=== PATIENT | male | born 1935 | race Asian ===

== ENCOUNTER 2021-04-22 05:46 | Inpatient (IN) | payer MEDICARE, OTHER ==
[~2021-04-22] VITALS: Ht 175.3 cm; Wt 77.5 kg
[~2021-04-22 05:46] MED LIST: AMLO5TAB66 PO; DOCU250C28 PO
[2021-04-22] MEDS ORDERED: ASPIRIN 81 MG CHEWABLE TABLET PO ONE (06:15)
[2021-04-22] MEDS ORDERED: NITROGLYCERIN 2% (1 GM=INCH) PACKET TP ONE (06:15)
[2021-04-22 06:22] LABS: COVID AG,FIA SOURCE NASOPHARYNGEAL
[2021-04-22 06:24] LABS: BASOPHILS % (AUTO) 0.8 % (0.0-2.0); EOSINOPHILS % (AUTO) 10.3 % (1.0-6.0); HEMATOCRIT 33.9 % (41-53); HEMOGLOBIN 10.8 g/dL (13.5-17.5); LYMPHOCYTES # (AUTO) 2.3 K/uL (1.0-4.8); LYMPHOCYTES % (AUTO) 20.1 % (22.0-44.0); MEAN CORPUSCULAR HGB CONC 31.8 G/dL (31.0-37.0); MEAN CORPUSCULAR VOLUME 91 fL (80-100); MONOCYTES # (AUTO) 0.7 K/uL (0.1-1.0); MONOCYTES % (AUTO) 6.4 % (2.0-9.0); NEUTROPHILS # (AUTO) 7.2 K/uL (1.8-7.7); NEUTROPHILS % (AUTO) 62.4 % (40.0-70.0); PLATELET COUNT (AUTO) 359 K/uL (150-450); RED BLOOD CELL COUNT(AUTO) 3.73 MIL/uL (4.50-5.90); RED CELL DISTRIBUTION WIDTH 17.1 % (11.5-14.5)
[2021-04-22 06:35] LABS: CALCIUM, TOTAL 8.5 mg/dL (8.8-10.5); CREATININE 1.56 mg/dL (0.60-1.30); POTASSIUM 3.7 mmol/L (3.5-5.1)
[2021-04-22] MEDS ORDERED: SODIUM CHLORIDE 0.9% 100 ML ONE (07:11)
[2021-04-22] MEDS ORDERED: IOHEXOL 350 MG/ML 75 ML VIAL ONE (07:11)
[2021-04-22] MEDS ORDERED: MORPHINE SULFATE 2 MG/ML SYRINGE IVP ONE ×2 (08:00→09:00)
[2021-04-22] MEDS ORDERED: LORazepam 2 MG/ML VIAL IVP ONE ×2 (08:00→09:00)
[2021-04-22] MEDS ORDERED: SODIUM CHLORIDE 0.9% 1,000 ML IV ONE (08:15)
[2021-04-22] MEDS ORDERED: KETAMINE HCL 50 MG/ML 10 ML VIAL ONE (09:02)
[2021-04-22] MEDS ORDERED: KETAMINE HCL 50 MG/ML 10 ML VIAL IVP ONE (09:30)
[2021-04-22] MEDS ORDERED: ACETAMINOPHEN 325 MG TABLET PO PRN ×2 (13:00→15:15)
[2021-04-22] MEDS ORDERED: ONDANSETRON HCL 4 MG/2 ML VIAL IVP PRN ×2 (13:00→15:15)
[2021-04-22] MEDS ORDERED: BISACODYL 10 MG RECTAL RECTAL SUPPOSITORY PR PRN (15:15)
[2021-04-22] MEDS ORDERED: MORPHINE SULFATE 2 MG/ML SYRINGE IVP PRN (15:15)
[2021-04-22] MEDS ORDERED: ZOLPIDEM TARTRATE 5 MG TABLET PO PRN (15:15)
[2021-04-22] MEDS ORDERED: MAGNESIUM HYDROXIDE SUSPENSION 30 ML UDCUP PO PRN (15:15)
[2021-04-22] MEDS: NITROGLYCERIN 2% (1 GM=INCH) PACKET TP SCH (16:37)
[2021-04-22] MEDS: HEPARIN SODIUM,PORCINE 5,000 UNITS/ML VIAL SQ SCH (16:37)
[2021-04-22 17:36] VITALS: BP 105/55
[2021-04-22 19:54] VITALS: BP 145/75
[2021-04-22] MEDS: HYDROCODONE/ACETAMINOPHEN 5-325 MG TABLET PO PRN (20:28)
[2021-04-22] MEDS: DOCUSATE SODIUM 100 MG CAPSULE PO SCH (20:29)
[2021-04-22 22:03] VITALS: BP 131/82
[2021-04-22 23:38] VITALS: BP 103/52
[2021-04-23] VITALS (7 sets, daily range): BP systolic 104–125; BP diastolic 57–85
[2021-04-23] MEDS: HEPARIN SODIUM,PORCINE 5,000 UNITS/ML VIAL SQ SCH ×3 (00:19→15:34)
[2021-04-23] MEDS: NITROGLYCERIN 2% (1 GM=INCH) PACKET TP SCH ×3 (00:20→15:34)
[2021-04-23 07:40] LABS: BASOPHILS % (AUTO) 1.6 % (0.0-2.0); EOSINOPHILS % (AUTO) 13.7 % (1.0-6.0); HEMATOCRIT 30.2 % (41-53); HEMOGLOBIN 9.9 g/dL (13.5-17.5); LYMPHOCYTES # (AUTO) 1.2 K/uL (1.0-4.8); LYMPHOCYTES % (AUTO) 15.7 % (22.0-44.0); MEAN CORPUSCULAR HEMOGLOBIN 29.3 pg (26.0-34.0); MEAN CORPUSCULAR HGB CONC 32.7 G/dL (31.0-37.0); MEAN CORPUSCULAR VOLUME 90 fL (80-100); MONOCYTES # (AUTO) 0.8 K/uL (0.1-1.0); MONOCYTES % (AUTO) 10.1 % (2.0-9.0); NEUTROPHILS # (AUTO) 4.5 K/uL (1.8-7.7); NEUTROPHILS % (AUTO) 58.9 % (40.0-70.0); PLATELET COUNT (AUTO) 309 K/uL (150-450); RED BLOOD CELL COUNT(AUTO) 3.37 MIL/uL (4.50-5.90); RED CELL DISTRIBUTION WIDTH 16.9 % (11.5-14.5)
[2021-04-23 07:59] LABS: CALCIUM, TOTAL 8.6 mg/dL (8.8-10.5); CHOL/HDL RATIO 2.9 (4.2-7.3); CREATININE 1.25 mg/dL (0.60-1.30); POTASSIUM 3.9 mmol/L (3.5-5.1)
[2021-04-23] MEDS: PANTOPRAZOLE SODIUM 40 MG DR TABLET PO SCH (08:09)
[2021-04-23] MEDS: AmLODIPine BESYLATE 5 MG TABLET PO SCH (08:09)
[2021-04-23] MEDS: DOCUSATE SODIUM 100 MG CAPSULE PO SCH ×2 (08:10→20:45)
[2021-04-23] MEDS ORDERED: ASPIRIN 81 MG CHEWABLE TABLET PO SCH (09:00)
[2021-04-23] MEDS: ATORVASTATIN CALCIUM 40 MG TABLET PO SCH (13:12)
[2021-04-23] MEDS: METOPROLOL TARTRATE 25 MG TABLET PO SCH ×2 (13:12→20:45)
[2021-04-24] MEDS: HEPARIN SODIUM,PORCINE 5,000 UNITS/ML VIAL SQ SCH ×4 (00:08→23:55)
[2021-04-24] MEDS: NITROGLYCERIN 2% (1 GM=INCH) PACKET TP SCH ×4 (00:08→23:57)
[2021-04-24 04:18] VITALS: BP 114/52
[2021-04-24 06:19] LABS: BASOPHILS % (AUTO) 2.2 % (0.0-2.0); EOSINOPHILS % (AUTO) 12.3 % (1.0-6.0); HEMATOCRIT 30.8 % (41-53); HEMOGLOBIN 10.1 g/dL (13.5-17.5); LYMPHOCYTES # (AUTO) 1.6 K/uL (1.0-4.8); LYMPHOCYTES % (AUTO) 17.7 % (22.0-44.0); MEAN CORPUSCULAR HEMOGLOBIN 29.4 pg (26.0-34.0); MEAN CORPUSCULAR HGB CONC 32.7 G/dL (31.0-37.0); MEAN CORPUSCULAR VOLUME 90 fL (80-100); MONOCYTES # (AUTO) 0.8 K/uL (0.1-1.0); MONOCYTES % (AUTO) 8.7 % (2.0-9.0); NEUTROPHILS # (AUTO) 5.4 K/uL (1.8-7.7); NEUTROPHILS % (AUTO) 59.1 % (40.0-70.0); PLATELET COUNT (AUTO) 328 K/uL (150-450); RED BLOOD CELL COUNT(AUTO) 3.42 MIL/uL (4.50-5.90); RED CELL DISTRIBUTION WIDTH 16.7 % (11.5-14.5)
[2021-04-24 06:57] LABS: ALBUMIN 3.1 g/dL (3.4-5.0); BILIRUBIN,TOTAL 0.4 mg/dL (0.1-1.0); CALCIUM, TOTAL 8.8 mg/dL (8.8-10.5); CREATININE 1.27 mg/dL (0.60-1.30); MAGNESIUM 1.9 mg/dL (1.80-2.40); POTASSIUM 4.6 mmol/L (3.5-5.1); TOTAL PROTEIN, SERUM 6.8 g/dL (6.4-8.2)
[2021-04-24 07:50] VITALS: BP 147/64
[2021-04-24] MEDS: METOPROLOL TARTRATE 25 MG TABLET PO SCH ×2 (09:00→21:20)
[2021-04-24 10:06] LABS: PROTHROMBIN TIME 10.3 SEC (9.4-11.6)
[2021-04-24] MEDS ORDERED: FentaNYL CITRATE PF 100 MCG/2 ML VIAL IVP ONE (11:00)
[2021-04-24] MEDS ORDERED: MIDAZOLAM HCL 2 MG/2 ML VIAL IVP ONE (11:00)
[2021-04-24 11:40] VITALS: BP 139/62
[2021-04-24] MEDS: PANTOPRAZOLE SODIUM 40 MG DR TABLET PO SCH (11:56)
[2021-04-24] MEDS: DOCUSATE SODIUM 100 MG CAPSULE PO SCH ×2 (11:56→21:20)
[2021-04-24] MEDS: ASPIRIN 81 MG CHEWABLE TABLET PO SCH (11:56)
[2021-04-24] MEDS: AmLODIPine BESYLATE 5 MG TABLET PO SCH (11:56)
[2021-04-24] MEDS: ATORVASTATIN CALCIUM 40 MG TABLET PO SCH (11:56)
[2021-04-24 16:18] VITALS: BP 115/57
[2021-04-24 16:42] LABS: BASOPHILS % (AUTO) 1.4 % (0.0-2.0); HEMOGLOBIN 10.6 g/dL (13.5-17.5); LYMPHOCYTES # (AUTO) 1.1 K/uL (1.0-4.8); LYMPHOCYTES % (AUTO) 11.3 % (22.0-44.0); MEAN CORPUSCULAR HEMOGLOBIN 29.6 pg (26.0-34.0); MEAN CORPUSCULAR VOLUME 90 fL (80-100); MONOCYTES # (AUTO) 0.8 K/uL (0.1-1.0); MONOCYTES % (AUTO) 8.3 % (2.0-9.0); NEUTROPHILS # (AUTO) 7.1 K/uL (1.8-7.7); PLATELET COUNT (AUTO) 335 K/uL (150-450); RED BLOOD CELL COUNT(AUTO) 3.58 MIL/uL (4.50-5.90); RED CELL DISTRIBUTION WIDTH 16.9 % (11.5-14.5)
[2021-04-24 16:56] LABS: CALCIUM, TOTAL 9.2 mg/dL (8.8-10.5); CREATININE 1.37 mg/dL (0.60-1.30); POTASSIUM 4.2 mmol/L (3.5-5.1)
[2021-04-24 19:41] VITALS: BP 141/88
[2021-04-25] VITALS: BP 109/60
[2021-04-25 04:22] VITALS: BP 110/56
[2021-04-25 07:12] VITALS: BP 114/57
[2021-04-25] MEDS: AmLODIPine BESYLATE 5 MG TABLET PO SCH (09:23)
[2021-04-25] MEDS: HEPARIN SODIUM,PORCINE 5,000 UNITS/ML VIAL SQ SCH ×3 (09:23→23:12)
[2021-04-25] MEDS: METOPROLOL TARTRATE 25 MG TABLET PO SCH ×2 (09:23→20:21)
[2021-04-25] MEDS: NITROGLYCERIN 2% (1 GM=INCH) PACKET TP SCH ×3 (09:23→23:12)
[2021-04-25] MEDS: DOCUSATE SODIUM 100 MG CAPSULE PO SCH ×2 (09:23→20:21)
[2021-04-25] MEDS: PANTOPRAZOLE SODIUM 40 MG DR TABLET PO SCH (09:23)
[2021-04-25] MEDS: ASPIRIN 81 MG CHEWABLE TABLET PO SCH (09:23)
[2021-04-25] MEDS: ATORVASTATIN CALCIUM 40 MG TABLET PO SCH (09:23)
[2021-04-25 10:51] VITALS: BP 122/58
[2021-04-25 12:11] LABS: BASOPHILS % (AUTO) 2.3 % (0.0-2.0); EOSINOPHILS % (AUTO) 7.8 % (1.0-6.0); HEMATOCRIT 33.3 % (41-53); LYMPHOCYTES # (AUTO) 1.5 K/uL (1.0-4.8); LYMPHOCYTES % (AUTO) 14.7 % (22.0-44.0); MEAN CORPUSCULAR HEMOGLOBIN 29.6 pg (26.0-34.0); MEAN CORPUSCULAR VOLUME 90 fL (80-100); MONOCYTES % (AUTO) 9.5 % (2.0-9.0); NEUTROPHILS # (AUTO) 6.7 K/uL (1.8-7.7); NEUTROPHILS % (AUTO) 65.7 % (40.0-70.0); PLATELET COUNT (AUTO) 348 K/uL (150-450); RED BLOOD CELL COUNT(AUTO) 3.72 MIL/uL (4.50-5.90)
[2021-04-25 12:19] LABS: CALCIUM, TOTAL 9.5 mg/dL (8.8-10.5); CREATININE 1.33 mg/dL (0.60-1.30); POTASSIUM 5.2 mmol/L (3.5-5.1)
[2021-04-25] MEDS ORDERED: SODIUM POLYSTYRENE SULFONATE 15 GM/60 ML SUSPENSION BOTTLE PO ONE (14:00)
[2021-04-25 15:16] VITALS: BP 129/73
[2021-04-25 19:10] VITALS: BP 108/52
[2021-04-26] VITALS (19 sets, daily range): BP systolic 99–167; BP diastolic 53–70
[2021-04-26] MEDS ORDERED: IOHEXOL 300 MG/ML 50 ML VIAL ONE (07:05)
[2021-04-26] MEDS ORDERED: LIDOCAINE/PF 1% 30 ML VIAL ONE (07:05)
[2021-04-26] MEDS ORDERED: SODIUM BICARBONATE 50 MEQ/50 ML VIAL ONE (07:05)
[2021-04-26] MEDS ORDERED: IOHEXOL 300 MG/ML 150 ML VIAL ONE (07:05)
[2021-04-26] MEDS ORDERED: IOHEXOL 300 MG/ML 100 ML VIAL ONE (07:05)
[2021-04-26] MEDS ORDERED: HEPARIN SODIUM 1000 UNITS/NS 1,000 ML ONE (07:06)
[2021-04-26] MEDS: NITROGLYCERIN 2% (1 GM=INCH) PACKET TP SCH ×3 (08:00→23:46)
[2021-04-26] MEDS: HEPARIN SODIUM,PORCINE 5,000 UNITS/ML VIAL SQ SCH ×3 (08:00→23:46)
[2021-04-26 08:04] LABS: BASOPHILS % (AUTO) 1.8 % (0.0-2.0); EOSINOPHILS % (AUTO) 10.9 % (1.0-6.0); HEMATOCRIT 31.3 % (41-53); HEMOGLOBIN 10.2 g/dL (13.5-17.5); LYMPHOCYTES # (AUTO) 1.7 K/uL (1.0-4.8); LYMPHOCYTES % (AUTO) 19.6 % (22.0-44.0); MEAN CORPUSCULAR HEMOGLOBIN 29.2 pg (26.0-34.0); MEAN CORPUSCULAR HGB CONC 32.6 G/dL (31.0-37.0); MEAN CORPUSCULAR VOLUME 90 fL (80-100); MONOCYTES # (AUTO) 0.9 K/uL (0.1-1.0); MONOCYTES % (AUTO) 9.7 % (2.0-9.0); NEUTROPHILS # (AUTO) 5.1 K/uL (1.8-7.7); PLATELET COUNT (AUTO) 308 K/uL (150-450); RED BLOOD CELL COUNT(AUTO) 3.49 MIL/uL (4.50-5.90); RED CELL DISTRIBUTION WIDTH 16.8 % (11.5-14.5)
[2021-04-26 08:08] LABS: PROTHROMBIN TIME 10.5 SEC (9.4-11.6)
[2021-04-26] MEDS ORDERED: FentaNYL CITRATE PF 100 MCG/2 ML VIAL ONE (08:10)
[2021-04-26] MEDS ORDERED: MIDAZOLAM HCL 2 MG/2 ML VIAL ONE (08:11)
[2021-04-26] MEDS ORDERED: SODIUM CHLORIDE 0.9% 500 ML IV ONE (08:15)
[2021-04-26] MEDS ORDERED: FentaNYL CITRATE PF 100 MCG/2 ML VIAL IVP ONE (08:15)
[2021-04-26] MEDS ORDERED: IOHEXOL 300 MG/ML 150 ML VIAL IARTER ONE (08:15)
[2021-04-26] MEDS ORDERED: LIDOCAINE 1% 30 ML/SOD BICARB 8.4% 4 ML SQ ONE (08:15)
[2021-04-26] MEDS ORDERED: HEPARIN SODIUM 1000 UNITS/NS 1,000 ML IARTER ONE (08:15)
[2021-04-26 08:24] LABS: ALBUMIN 3.1 g/dL (3.4-5.0); BILIRUBIN,TOTAL 0.4 mg/dL (0.1-1.0); CREATININE 1.4 mg/dL (0.60-1.30); POTASSIUM 4.5 mmol/L (3.5-5.1); TOTAL PROTEIN, SERUM 7.1 g/dL (6.4-8.2)
[2021-04-26] MEDS: METOPROLOL TARTRATE 25 MG TABLET PO SCH ×3 (09:00→21:00)
[2021-04-26] MEDS: PANTOPRAZOLE SODIUM 40 MG DR TABLET PO SCH (09:24)
[2021-04-26] MEDS: DOCUSATE SODIUM 100 MG CAPSULE PO SCH ×2 (09:24→21:01)
[2021-04-26] MEDS: ATORVASTATIN CALCIUM 40 MG TABLET PO SCH (09:24)
[2021-04-26] MEDS: ASPIRIN 81 MG CHEWABLE TABLET PO SCH (09:24)
[2021-04-26] MEDS: AmLODIPine BESYLATE 5 MG TABLET PO SCH (09:25)
[2021-04-26] MEDS: HYDROCODONE/ACETAMINOPHEN 5-325 MG TABLET PO PRN (10:51)
[2021-04-26 14:06] LABS: QUANTIFERON, TB GOLD PLUS Negative (Negative)
[2021-04-26] MEDS: PYRIDOXINE HCL 50 MG TABLET PO SCH (18:20)
[2021-04-26] MEDS: RIFAMPIN 300 MG CAPSULE PO SCH (18:20)
[2021-04-26] MEDS: ISONIAZID 300 MG TABLET PO SCH (18:20)
[2021-04-26] MEDS: PYRAZINAMIDE 500 MG TABLET PO SCH (18:20)
[2021-04-26] MEDS: ETHAMBUTOL HCL 400 MG TABLET PO SCH (18:20)
[2021-04-27 04:09] VITALS: BP 118/81
[2021-04-27 07:16] LABS: BASOPHILS % (AUTO) 1.1 % (0.0-2.0); HEMATOCRIT 33.1 % (41-53); HEMOGLOBIN 10.8 g/dL (13.5-17.5); LYMPHOCYTES % (AUTO) 8.8 % (22.0-44.0); MEAN CORPUSCULAR HEMOGLOBIN 29.3 pg (26.0-34.0); MEAN CORPUSCULAR HGB CONC 32.6 G/dL (31.0-37.0); MEAN CORPUSCULAR VOLUME 90 fL (80-100); MONOCYTES # (AUTO) 0.7 K/uL (0.1-1.0); MONOCYTES % (AUTO) 6.8 % (2.0-9.0); NEUTROPHILS # (AUTO) 8.6 K/uL (1.8-7.7); NEUTROPHILS % (AUTO) 78.3 % (40.0-70.0); PLATELET COUNT (AUTO) 321 K/uL (150-450); RED BLOOD CELL COUNT(AUTO) 3.68 MIL/uL (4.50-5.90); RED CELL DISTRIBUTION WIDTH 16.7 % (11.5-14.5)
[2021-04-27 07:39] LABS: ALBUMIN 3.3 g/dL (3.4-5.0); BILIRUBIN,TOTAL 1.2 mg/dL (0.1-1.0); CREATININE 1.66 mg/dL (0.60-1.30); POTASSIUM 4.7 mmol/L (3.5-5.1); TOTAL PROTEIN, SERUM 7.5 g/dL (6.4-8.2)
[2021-04-27 08:00] VITALS: BP 140/66
[2021-04-27] MEDS: NITROGLYCERIN 2% (1 GM=INCH) PACKET TP SCH ×2 (08:00→16:00)
[2021-04-27] MEDS: AmLODIPine BESYLATE 5 MG TABLET PO SCH (08:37)
[2021-04-27] MEDS: ATORVASTATIN CALCIUM 40 MG TABLET PO SCH (08:37)
[2021-04-27] MEDS: PYRAZINAMIDE 500 MG TABLET PO SCH (08:37)
[2021-04-27] MEDS: ISONIAZID 300 MG TABLET PO SCH (08:37)
[2021-04-27] MEDS: PANTOPRAZOLE SODIUM 40 MG DR TABLET PO SCH (08:37)
[2021-04-27] MEDS: RIFAMPIN 300 MG CAPSULE PO SCH (08:37)
[2021-04-27] MEDS: ASPIRIN 81 MG CHEWABLE TABLET PO SCH (08:37)
[2021-04-27] MEDS: DOCUSATE SODIUM 100 MG CAPSULE PO SCH ×2 (08:37→20:53)
[2021-04-27] MEDS: PYRIDOXINE HCL 50 MG TABLET PO SCH (08:38)
[2021-04-27] MEDS: ETHAMBUTOL HCL 400 MG TABLET PO SCH (08:38)
[2021-04-27] MEDS: HEPARIN SODIUM,PORCINE 5,000 UNITS/ML VIAL SQ SCH ×2 (08:38→16:22)
[2021-04-27] MEDS: METOPROLOL TARTRATE 25 MG TABLET PO SCH ×2 (09:58→20:53)
[2021-04-27 12:00] VITALS: BP 150/67
[2021-04-27 16:08] VITALS: BP 139/66
[2021-04-27 19:23] VITALS: BP 103/59
[2021-04-27] MEDS: HYDROCODONE/ACETAMINOPHEN 5-325 MG TABLET PO PRN (20:54)
[2021-04-27 23:46] VITALS: BP 108/60
[2021-04-28] MEDS: NITROGLYCERIN 2% (1 GM=INCH) PACKET TP SCH ×3 (00:32→15:11)
[2021-04-28] MEDS: HEPARIN SODIUM,PORCINE 5,000 UNITS/ML VIAL SQ SCH ×3 (00:32→15:47)
[2021-04-28 04:26] VITALS: BP 113/59
[2021-04-28 07:06] LABS: HIV 1-2 SCREEN 4TH GEN W/RFLX Non Reactive (Non Reactive)
[2021-04-28] MEDS: ASPIRIN 81 MG CHEWABLE TABLET PO SCH (08:17)
[2021-04-28] MEDS: AmLODIPine BESYLATE 5 MG TABLET PO SCH ×2 (08:17→08:26)
[2021-04-28] MEDS: PANTOPRAZOLE SODIUM 40 MG DR TABLET PO SCH (08:17)
[2021-04-28] MEDS: DOCUSATE SODIUM 100 MG CAPSULE PO SCH ×2 (08:17→20:56)
[2021-04-28] MEDS: ISONIAZID 300 MG TABLET PO SCH (08:18)
[2021-04-28] MEDS: ETHAMBUTOL HCL 400 MG TABLET PO SCH (08:18)
[2021-04-28] MEDS: ATORVASTATIN CALCIUM 40 MG TABLET PO SCH (08:18)
[2021-04-28] MEDS: METOPROLOL TARTRATE 25 MG TABLET PO SCH ×2 (08:18→21:00)
[2021-04-28] MEDS: RIFAMPIN 300 MG CAPSULE PO SCH (08:18)
[2021-04-28] MEDS: PYRIDOXINE HCL 50 MG TABLET PO SCH (08:18)
[2021-04-28] MEDS: PYRAZINAMIDE 500 MG TABLET PO SCH (08:19)
[2021-04-28 08:20] VITALS: BP 118/61
[2021-04-28 12:21] VITALS: BP 115/63
[2021-04-28 15:53] VITALS: BP 105/51
[2021-04-28 20:00] VITALS: BP 110/60
[2021-04-29] MEDS: HEPARIN SODIUM,PORCINE 5,000 UNITS/ML VIAL SQ SCH ×3 (00:29→15:52)
[2021-04-29 00:47] VITALS: BP 127/58
[2021-04-29 05:12] VITALS: BP 118/65
[2021-04-29] MEDS: METOPROLOL TARTRATE 25 MG TABLET PO SCH ×2 (08:32→20:41)
[2021-04-29] MEDS: NITROGLYCERIN 2% (1 GM=INCH) PACKET TP SCH ×3 (08:32→15:52)
[2021-04-29] MEDS: DOCUSATE SODIUM 100 MG CAPSULE PO SCH ×2 (08:32→20:41)
[2021-04-29] MEDS: PANTOPRAZOLE SODIUM 40 MG DR TABLET PO SCH (08:33)
[2021-04-29] MEDS: PYRIDOXINE HCL 50 MG TABLET PO SCH (08:33)
[2021-04-29] MEDS: AmLODIPine BESYLATE 5 MG TABLET PO SCH (08:33)
[2021-04-29] MEDS: ASPIRIN 81 MG CHEWABLE TABLET PO SCH (08:33)
[2021-04-29] MEDS: ETHAMBUTOL HCL 400 MG TABLET PO SCH (08:34)
[2021-04-29] MEDS: RIFAMPIN 300 MG CAPSULE PO SCH (08:34)
[2021-04-29] MEDS: ATORVASTATIN CALCIUM 40 MG TABLET PO SCH (08:34)
[2021-04-29] MEDS: PYRAZINAMIDE 500 MG TABLET PO SCH (08:34)
[2021-04-29 08:35] VITALS: BP 134/57
[2021-04-29] MEDS: ISONIAZID 300 MG TABLET PO SCH (08:35)
[2021-04-29 11:20] LABS: CREATININE 2.09 mg/dL (0.60-1.30); POTASSIUM 4.5 mmol/L (3.5-5.1)
[2021-04-29 11:59] VITALS: BP_SYST 128; BP_SYST 18; BP_DIAS 96
[2021-04-29 16:33] VITALS: BP 146/69
[2021-04-29 20:44] VITALS: BP 141/71
[2021-04-29] MEDS: HYDROCODONE/ACETAMINOPHEN 5-325 MG TABLET PO PRN (20:45)
[2021-04-30] VITALS (7 sets, daily range): BP systolic 109–132; BP diastolic 50–65
[2021-04-30] MEDS: HEPARIN SODIUM,PORCINE 5,000 UNITS/ML VIAL SQ SCH ×3 (01:41→16:04)
[2021-04-30 07:01] LABS: BASOPHILS % (AUTO) 1.7 % (0.0-2.0); EOSINOPHILS % (AUTO) 11.8 % (1.0-6.0); HEMATOCRIT 31.1 % (41-53); HEMOGLOBIN 10.2 g/dL (13.5-17.5); LYMPHOCYTES # (AUTO) 1.3 K/uL (1.0-4.8); LYMPHOCYTES % (AUTO) 12.5 % (22.0-44.0); MEAN CORPUSCULAR HEMOGLOBIN 29.5 pg (26.0-34.0); MEAN CORPUSCULAR HGB CONC 32.7 G/dL (31.0-37.0); MEAN CORPUSCULAR VOLUME 90 fL (80-100); MONOCYTES # (AUTO) 1.1 K/uL (0.1-1.0); MONOCYTES % (AUTO) 10.7 % (2.0-9.0); NEUTROPHILS # (AUTO) 6.4 K/uL (1.8-7.7); NEUTROPHILS % (AUTO) 63.3 % (40.0-70.0); PLATELET COUNT (AUTO) 311 K/uL (150-450); RED BLOOD CELL COUNT(AUTO) 3.45 MIL/uL (4.50-5.90); RED CELL DISTRIBUTION WIDTH 16.4 % (11.5-14.5)
[2021-04-30 07:21] LABS: ALBUMIN 3.2 g/dL (3.4-5.0); BILIRUBIN,TOTAL 0.7 mg/dL (0.1-1.0); CALCIUM, TOTAL 9.4 mg/dL (8.8-10.5); CREATININE 1.92 mg/dL (0.60-1.30); POTASSIUM 4.8 mmol/L (3.5-5.1); TOTAL PROTEIN, SERUM 7.6 g/dL (6.4-8.2)
[2021-04-30] MEDS: PANTOPRAZOLE SODIUM 40 MG DR TABLET PO SCH (08:18)
[2021-04-30] MEDS: AmLODIPine BESYLATE 5 MG TABLET PO SCH (08:18)
[2021-04-30] MEDS: DOCUSATE SODIUM 100 MG CAPSULE PO SCH ×2 (08:18→20:29)
[2021-04-30] MEDS: ASPIRIN 81 MG CHEWABLE TABLET PO SCH (08:19)
[2021-04-30] MEDS: ATORVASTATIN CALCIUM 40 MG TABLET PO SCH (08:19)
[2021-04-30] MEDS: PYRAZINAMIDE 500 MG TABLET PO SCH (08:19)
[2021-04-30] MEDS: RIFAMPIN 300 MG CAPSULE PO SCH (08:19)
[2021-04-30] MEDS: ETHAMBUTOL HCL 400 MG TABLET PO SCH (08:20)
[2021-04-30] MEDS: ISONIAZID 300 MG TABLET PO SCH (08:20)
[2021-04-30] MEDS: PYRIDOXINE HCL 50 MG TABLET PO SCH (08:20)
[2021-04-30] MEDS: NITROGLYCERIN 2% (1 GM=INCH) PACKET TP SCH ×3 (08:57→16:04)
[2021-04-30] MEDS: METOPROLOL TARTRATE 25 MG TABLET PO SCH ×3 (09:00→20:33)
[2021-05-01] MEDS: HEPARIN SODIUM,PORCINE 5,000 UNITS/ML VIAL SQ SCH ×4 (00:19→23:22)
[2021-05-01] MEDS: NITROGLYCERIN 2% (1 GM=INCH) PACKET TP SCH ×4 (00:19→23:22)
[2021-05-01 05:31] VITALS: BP 134/74
[2021-05-01 08:10] VITALS: BP 137/77
[2021-05-01] MEDS: DOCUSATE SODIUM 100 MG CAPSULE PO SCH ×2 (09:00→19:52)
[2021-05-01] MEDS: AmLODIPine BESYLATE 5 MG TABLET PO SCH (09:00)
[2021-05-01] MEDS: ASPIRIN 81 MG CHEWABLE TABLET PO SCH (09:05)
[2021-05-01] MEDS: ISONIAZID 300 MG TABLET PO SCH (09:06)
[2021-05-01] MEDS: ISOSORBIDE MONONITRATE 30 MG ER TABLET PO SCH (09:06)
[2021-05-01] MEDS: ATORVASTATIN CALCIUM 40 MG TABLET PO SCH (09:07)
[2021-05-01] MEDS: METOPROLOL TARTRATE 25 MG TABLET PO SCH ×2 (09:08→19:52)
[2021-05-01] MEDS: ETHAMBUTOL HCL 400 MG TABLET PO SCH (09:09)
[2021-05-01] MEDS: PYRIDOXINE HCL 50 MG TABLET PO SCH (09:10)
[2021-05-01] MEDS: RIFAMPIN 300 MG CAPSULE PO SCH (09:10)
[2021-05-01] MEDS: PANTOPRAZOLE SODIUM 40 MG DR TABLET PO SCH (09:10)
[2021-05-01 11:56] VITALS: BP 105/61
[2021-05-01] MEDS: PYRAZINAMIDE 500 MG TABLET PO SCH (11:58)
[2021-05-01 16:00] VITALS: BP 119/61
[2021-05-01 20:17] VITALS: BP 113/67
[2021-05-02 00:45] VITALS: BP 111/61
[2021-05-02 04:30] VITALS: BP 115/65
[2021-05-02 06:47] LABS: HEMOGLOBIN 10.3 g/dL (13.5-17.5); MEAN CORPUSCULAR HEMOGLOBIN 30.1 pg (26.0-34.0); MEAN CORPUSCULAR HGB CONC 33.2 G/dL (31.0-37.0); MEAN CORPUSCULAR VOLUME 91 fL (80-100); PLATELET COUNT (AUTO) 352 K/uL (150-450); RED BLOOD CELL COUNT(AUTO) 3.42 MIL/uL (4.50-5.90); RED CELL DISTRIBUTION WIDTH 16.1 % (11.5-14.5)
[2021-05-02 07:05] LABS: ALBUMIN 3.4 g/dL (3.4-5.0); BILIRUBIN,TOTAL 0.5 mg/dL (0.1-1.0); CALCIUM, TOTAL 9.6 mg/dL (8.8-10.5); CREATININE 1.84 mg/dL (0.60-1.30); MAGNESIUM 2.1 mg/dL (1.80-2.40); POTASSIUM 5.9 mmol/L (3.5-5.1); TOTAL PROTEIN, SERUM 7.8 g/dL (6.4-8.2)
[2021-05-02 08:01] LABS: BAND NEUTROPHILS % (MANUAL) 0 % (0-5)
[2021-05-02 08:05] VITALS: BP 142/63
[2021-05-02 08:10] LABS: EOSINOPHILS % (MANUAL) 6 % (1-6); LYMPHOCYTES % (MANUAL) 24 % (22-44); MONOCYTES % (MANUAL) 1 % (2-9); SEGMENTED NEUTROPHILS % 69 % (40-70)
[2021-05-02] MEDS: HEPARIN SODIUM,PORCINE 5,000 UNITS/ML VIAL SQ SCH ×3 (09:21→23:40)
[2021-05-02] MEDS: NITROGLYCERIN 2% (1 GM=INCH) PACKET TP SCH ×3 (09:22→23:41)
[2021-05-02] MEDS: DOCUSATE SODIUM 100 MG CAPSULE PO SCH ×2 (09:22→20:37)
[2021-05-02] MEDS: METOPROLOL TARTRATE 25 MG TABLET PO SCH ×2 (09:23→20:38)
[2021-05-02] MEDS: ISOSORBIDE MONONITRATE 30 MG ER TABLET PO SCH (09:23)
[2021-05-02] MEDS: ATORVASTATIN CALCIUM 40 MG TABLET PO SCH (09:23)
[2021-05-02] MEDS: RIFAMPIN 300 MG CAPSULE PO SCH (09:24)
[2021-05-02] MEDS: ETHAMBUTOL HCL 400 MG TABLET PO SCH (09:24)
[2021-05-02] MEDS: PYRIDOXINE HCL 50 MG TABLET PO SCH (09:24)
[2021-05-02] MEDS: PYRAZINAMIDE 500 MG TABLET PO SCH (09:25)
[2021-05-02] MEDS: PANTOPRAZOLE SODIUM 40 MG DR TABLET PO SCH (09:26)
[2021-05-02] MEDS: AmLODIPine BESYLATE 5 MG TABLET PO SCH (09:26)
[2021-05-02] MEDS: ASPIRIN 81 MG CHEWABLE TABLET PO SCH (09:26)
[2021-05-02] MEDS: ISONIAZID 300 MG TABLET PO SCH (09:26)
[2021-05-02 09:31] LABS: CALCIUM, TOTAL 9.5 mg/dL (8.8-10.5); CREATININE 1.88 mg/dL (0.60-1.30); POTASSIUM 5.3 mmol/L (3.5-5.1)
[2021-05-02] MEDS: HYDROCODONE/ACETAMINOPHEN 5-325 MG TABLET PO PRN (10:02)
[2021-05-02 12:10] VITALS: BP 122/65
[2021-05-02 16:00] VITALS: BP 129/74
[2021-05-02 19:54] VITALS: BP 140/67
[2021-05-03 00:19] VITALS: BP 137/69
[2021-05-03 04:29] VITALS: BP 142/68
[2021-05-03 07:41] LABS: BASOPHILS % (AUTO) 2.2 % (0.0-2.0); HEMATOCRIT 32.5 % (41-53); HEMOGLOBIN 10.4 g/dL (13.5-17.5); LYMPHOCYTES # (AUTO) 1.5 K/uL (1.0-4.8); LYMPHOCYTES % (AUTO) 19.3 % (22.0-44.0); MEAN CORPUSCULAR HEMOGLOBIN 29.1 pg (26.0-34.0); MEAN CORPUSCULAR HGB CONC 32.1 G/dL (31.0-37.0); MEAN CORPUSCULAR VOLUME 91 fL (80-100); MONOCYTES # (AUTO) 0.9 K/uL (0.1-1.0); NEUTROPHILS # (AUTO) 4.2 K/uL (1.8-7.7); NEUTROPHILS % (AUTO) 51.7 % (40.0-70.0); PLATELET COUNT (AUTO) 405 K/uL (150-450); RED BLOOD CELL COUNT(AUTO) 3.59 MIL/uL (4.50-5.90); RED CELL DISTRIBUTION WIDTH 16.3 % (11.5-14.5)
[2021-05-03 07:44] LABS: EOSINOPHILS % (AUTO) 15.8 % (1.0-6.0)
[2021-05-03 07:59] LABS: ALBUMIN 3.5 g/dL (3.4-5.0); BILIRUBIN,TOTAL 0.5 mg/dL (0.1-1.0); CALCIUM, TOTAL 9.3 mg/dL (8.8-10.5); CREATININE 1.83 mg/dL (0.60-1.30); MAGNESIUM 2.3 mg/dL (1.80-2.40); POTASSIUM 5.2 mmol/L (3.5-5.1)
[2021-05-03] MEDS: NITROGLYCERIN 2% (1 GM=INCH) PACKET TP SCH (08:00)
[2021-05-03 08:08] VITALS: BP 147/72
[2021-05-03] MEDS: PYRAZINAMIDE 500 MG TABLET PO SCH (08:44)
[2021-05-03] MEDS: ETHAMBUTOL HCL 400 MG TABLET PO SCH (08:45)
[2021-05-03] MEDS: PYRIDOXINE HCL 50 MG TABLET PO SCH (08:45)
[2021-05-03] MEDS: RIFAMPIN 300 MG CAPSULE PO SCH (08:45)
[2021-05-03] MEDS: ISOSORBIDE MONONITRATE 30 MG ER TABLET PO SCH (08:46)
[2021-05-03] MEDS: ISONIAZID 300 MG TABLET PO SCH (08:46)
[2021-05-03] MEDS: AmLODIPine BESYLATE 5 MG TABLET PO SCH (08:47)
[2021-05-03] MEDS: ASPIRIN 81 MG CHEWABLE TABLET PO SCH (08:47)
[2021-05-03] MEDS: ATORVASTATIN CALCIUM 40 MG TABLET PO SCH (08:47)
[2021-05-03] MEDS: PANTOPRAZOLE SODIUM 40 MG DR TABLET PO SCH (08:47)
[2021-05-03] MEDS: METOPROLOL TARTRATE 25 MG TABLET PO SCH (08:47)
[2021-05-03] MEDS: HEPARIN SODIUM,PORCINE 5,000 UNITS/ML VIAL SQ SCH (08:48)
[2021-05-03] MEDS: DOCUSATE SODIUM 100 MG CAPSULE PO SCH (08:48)
[2021-05-03] MEDS ORDERED: ATOR40TA28 PO (10:48)
[2021-05-03] MEDS ORDERED: ASPI-1450 PO (10:49)
[2021-05-03] MEDS ORDERED: RIFA300 PO (10:50)
[2021-05-03] MEDS ORDERED: PYRA500 PO (10:50)
[2021-05-03] MEDS ORDERED: ISON100L PO (10:50)
[2021-05-03] MEDS ORDERED: ETHA100 PO (10:52)
[2021-05-03] MEDS ORDERED: PYRI-12 PO (10:53)
[2021-05-03] MEDS ORDERED: METO25 PO (10:55)
[2021-05-03 12:04] VITALS: BP 137/67
== END 2021-05-03 12:27 | disposition home or self-care (01) | DRG 281 ==
LOC: EMS 05:52 → 5S 14:40
PROVIDERS: ADMIT Internal Medicine; ATTEND Internal Medicine
PROC: 0BBG3ZX Excision of Left Upper Lung Lobe, Percutaneous Approach, Diagnostic (ICD-10-PCS; 2021-04-24)
PROC: 4A023N7 Measurement of Cardiac Sampling and Pressure, Left Heart, Percutaneous Approach (ICD-10-PCS; principal; 2021-04-26)
PROC: B2111ZZ Fluoroscopy of Multiple Coronary Arteries using Low Osmolar Contrast (ICD-10-PCS; 2021-04-26)
PROC: B3101ZZ Fluoroscopy of Thoracic Aorta using Low Osmolar Contrast (ICD-10-PCS; 2021-04-26)
PROC: B2151ZZ Fluoroscopy of Left Heart using Low Osmolar Contrast (ICD-10-PCS; 2021-04-26)
PROC: B41J1ZZ Fluoroscopy of Other Lower Arteries using Low Osmolar Contrast (ICD-10-PCS; 2021-04-26)
DX: I21.4 Non-ST elevation (NSTEMI) myocardial infarction (principal); I12.0 Hypertensive chronic kidney disease with stage 5 chronic kidney disease or end stage renal disease; N18.5 Chronic kidney disease, stage 5; N17.9 Acute kidney failure, unspecified; E44.1 Mild protein-calorie malnutrition; A15.0 Tuberculosis of lung; I25.10 Atherosclerotic heart disease of native coronary artery without angina pectoris; D63.8 Anemia in other chronic diseases classified elsewhere; I71.2 Thoracic aortic aneurysm, without rupture; E78.5 Hyperlipidemia, unspecified; E87.5 Hyperkalemia; G89.29 Other chronic pain; I71.4 Abdominal aortic aneurysm, without rupture; Z20.822 Contact with and (suspected) exposure to COVID-19; J44.9 Chronic obstructive pulmonary disease, unspecified; R91.1 Solitary pulmonary nodule; I35.1 Nonrheumatic aortic (valve) insufficiency; Z87.19 Personal history of other diseases of the digestive system; Z78.9 Other specified health status
CPT/HCPCS: 71045; 71250; 71270; 76700; 77012; 80048; 80053; 80061; 83735; 84484; 85025; 85379; 85610; 86480; 87015; 87101; 87176; 87206; 87389; 88305; 88312; 93005; 93306; 93567; 94640; 97162; 99291; J1644; J2060; J2250; J2270; J3010; J3490; J7050; Q9967; 36415-L1; 36415-TC